=== PATIENT | female | born 1940 | race Caucasian/White ===

== ENCOUNTER 2021-07-08 11:10 | Emergency (ER) | payer BC ==
[~2021-07-08] VITALS: Ht 160 cm; Wt 108.6 kg
--- NOTE | 2021-07-08 15:10 | PHYS DOC ---
Past Medical History Past Medical History: CHF, GERD, Hypertension Past Surgical History: Cholecystectomy, Hysterectomy, Knee Replacement Additional Past Surgical Histo: back surgery Smoking Status: Former Smoker Alcohol Use: None General Adult EDM: Chief Complaint: OTHER COMPLAINTS HPI: HPI: Patient is a 81 year old female with history of hypertension, acid reflux, CHF, who presents to the ED today complaining of a sharp intermittent 1 out of 10 pain going through her right eye and around the right temporal region to the right forehead, symptoms have been going on for 2 weeks. Patient denies any vision loss, denies any exacerbating or relieving factors. He states he was seen by a dentist last because she thought this was a dental problem but the dentist stated there was no dental issue. She states she saw the glass selector today at [facility], and was sent to the ED for rule out of giant temporal arteritis. Review of Systems: Review of Systems: Constitutional: Denies fever or chills. [] Eyes: Reports right eye pain, pain around her right temporal region and right forehead, denies change in visual acuity. [] HENT: Denies nasal congestion or sore throat. [] Respiratory: Denies cough or shortness of breath. [] Cardiovascular: Denies chest pain or edema. [] GI: Denies abdominal pain, nausea, vomiting, bloody stools or diarrhea. [] : Denies dysuria. [] Musculoskeletal: Denies back pain or joint pain. [] Integument: Denies rash. [] Neurologic: Denies headache, focal weakness or sensory changes. [] Psychiatric: Denies depression or anxiety. [] Heart Score: C/O Chest Pain: N/A Risk Factors: Risk Factors: DM, Current or recent (<one month) smoker, HTN, HLP, family history of CAD, obesity. Risk Scores: Score 0 - 3: 2.5% MACE over next 6 weeks - Discharge Home Score 4 - 6: 20.3% MACE over next 6 weeks - Admit for Clinical Observation Score 7 - 10: 72.7% MACE over next 6 weeks - Early Invasive Strategies Allergies: Allergies: Allergies Coded Allergies Type Severity Reaction Last Updated Verified codeine Allergy Intermediate Unknown 07/08/21 Yes cyclobenzaprine Allergy Intermediate Rash 07/08/21 Yes Physical Exam: PE: Constitutional: Well developed, well nourished, no acute distress, non-toxic a ppearance. [] HENT: Normocephalic, atraumatic, bilateral external ears normal, oropharynx moist, no oral exudates, nose normal. [place] Eyes: PERRLA, EOMI, conjunctiva normal, no discharge. There is tenderness to the right temporal and right forehead Neck: Normal range of motion, no tenderness, supple, no stridor. [] Cardiovascular:Heart rate regular rhythm, no murmur [] Lungs & Thorax: Bilateral breath sounds clear to auscultation [] Abdomen: Bowel sounds normal, soft, no tenderness, no masses, no pulsatile m asses. [] Skin: Warm, dry, no erythema, no rash. [] Back: No tenderness, no CVA tenderness. [] Extremities: No tenderness, no cyanosis, no clubbing, ROM intact, no edema. [] Neurologic: Alert and oriented X 3, normal motor function, normal sensory function, no focal deficits noted. Cranial nerves II through XII intact Psychologic: Affect normal, judgement normal, mood normal. [] Current Patient Data: Vital Signs: Vital Signs Date Time Temp Pulse Resp B/P (MAP) Pulse Ox O2 Delivery O2 Flow Rate FiO2 07/08/21 13:24 97.8 71 18 113/53 (73) 97 97.8 EKG: EKG: [] Radiology/Procedures: Radiology/Procedures: []PROCEDURE: CT HEAD WO CONTRAST EXAM: CT head without contrast INDICATION: Right eye pain COMPARISON: None TECHNIQUE: Axial CT imaging through the head without intravenous contrast. Sagittal and coronal reformats were obtained. One or more of the following individualized dose reduction techniques were utilized for this examination: 1. Automated exposure control 2. Adjustment of the mA and/or kV according to patient size 3. Use of iterative reconstruction technique. FINDINGS: Ventricles and sulci are mildly enlarged. There is mild periventricular and scattered deep white matter hypoattenuation. No intracranial hemorrhage or acute infarct. Paranasal sinuses and mastoid air cells are clear. Globes and orbits are intact. Skull and scalp are unremarkable. IMPRESSION: No acute intracranial abnormality. Electronically signed by: Angie Benjamin MD (07/08/2021 3:52 PM) [id number] DICTATED and SIGNED BY: ANGIE BENJAMIN MD DATE: 07/08/21 [id number] 0 Course & Med Decision Making: Course & Med Decision Making Pertinent Labs and Imaging studies reviewed. (See chart for details) This is a 81-year-old female patient presenting to the ED today complaining of 1 out of 10 pain in the right eye and around to the right nondenominational and right forehead, symptoms of been going on for 2 weeks. Was seen by dentist last and was told this is not a dental issue. Was seen by the glass selector today and was sent to the ED for rule out of giant temporal arteritis Vitals on arrival to the ED temperature 97.8, heart rate 71, respiration 18 on room air, blood pressure 113/53, O2 sats 97%. CT of the head is negative for any acute findings. CBC with a normal WBC, sed rate 45, CRP 1.[address] Pandey and Dr. Perez-the recommended vascular surgeon to be contacted for biopsy I spoke with Dr. Flores, he stated the biopsy can be done as an outpatient Spoke to Dr. Cintron, he recommended patient to be treated outpatient. He requested to start patient on prednisone 60 mg daily for 2 weeks in the meantime she needs to follow-up with the neurologist, occupational therapist assistant, and vascular surgeon. Patient stated she will follow-up at [facility] Disclaimer: Secrette Disclaimer: This electronic medical record was generated, in whole or in part, using a voice recognition dictation system. Departure Departure Impression: Primary Impression: Headache Qualified Codes: R51.9 - Headache, unspecified Additional Impression: Pain, eye, right Disposition: 01 HOME / SELF CARE / HOMELESS Condition: STABLE Referrals: MELINA MCGUIRE MD (PCP) follow up as soon as you can MAKI PRETTY MD follow up as soon as you can EFFIE FLORES MD follow up for Biopsy as soon as you can Patient Instructions: Headache, FAQs Additional Instructions: You were evaluated in the emergency room, your CRP was 1.9 with a sed rate of 45. Your WBC was normal. Your CT of the head was normal. We were concerned about giant cell arteritis. Please follow-up with your primary care doctor as soon as you can. Also follow-up with the provided neurologist or a neurologist of your choice. Also follow-up with the provided vascular surgeon or a vascular surgeon and a occupational therapist assistant of your choice Take the prescribed prednisone as ordered. Come back to the ED at any point symptoms worsen Scripts Prednisone (PREDNISONE) 20 Mg Tablet 3 TAB PO DAILY for 14 Days, #42 TAB Prov: LOLA MUSTAFA APRN 07/08/21 LOLA MUSTAFA APRN Jul 08, 2021 15:10
--- NOTE | 2021-07-08 15:54 | RAD ---
EXAM: CT head without contrast INDICATION: Right eye pain COMPARISON: None TECHNIQUE: Axial CT imaging through the head without intravenous contrast. Sagittal and coronal refor mats were obtained. One or more of the following individualized dose reduction techniques were utilized for this examinat ion: 1. Automated exposure control 2. Adjustment of the mA and/or kV according to patient size 3. Use of iterative reconstruction technique. FINDINGS: Ventricles and sulci are mildly enlarged. There is mild periventricular and scattered deep white la er hypoattenuation. No intracranial hemorrhage or acute infarct. Paranasal sinuses and mastoid air ce lls are clear. Globes and orbits are intact. Skull and scalp are unremarkable. IMPRESSION: No acute intracranial abnormality. Electronically signed by: Angie Benjamin MD (07/08/2021 3:52 PM) [id number]
[2021-07-08 17:19] LABS: BASO # 0.1 x10^3/uL (0.0-0.2); BASO % 1 % (0-3); EOS # 0.1 x10^3/uL (0.0-0.7); EOS % 1 % (0-3); HEMATOCRIT 36.5 % (36.0-47.0); HEMOGLOBIN 12.2 g/dL (12.0-15.5); LYMPH % 20 % (24-48); MEAN CORPUSCULAR HEMOGLOBIN 30 pg (25-35); MEAN CORPUSCULAR HGB CONC 34 g/dL (31-37); MEAN CORPUSCULAR VOLUME 88 fL (79-100); MONO # 0.6 x10^3/uL (0.0-1.1); MONO % 6 % (0-9); NEUT # 7.2 x10^3/uL (1.8-7.7); NEUT % 72 % (31-73); PLATELET COUNT 285 x10^3/uL (140-400); RED BLOOD COUNT 4.15 x10^6/uL (3.50-5.40); RED CELL DISTRIBUTION WIDTH 14.4 % (11.5-14.5); WHITE BLOOD COUNT 10.1 x10^3/uL (4.0-11.0)
[2021-07-08 17:30] LABS: CALCIUM 8.2 mg/dL (8.5-10.1); CREATININE 1.1 mg/dL (0.6-1.0); GFR 47.7; POTASSIUM 3.8 mmol/L (3.5-5.1)
[2021-07-08 17:36] LABS: ALBUMIN 3.1 g/dL (3.4-5.0); ALBUMIN/GLOBULIN RATIO 0.9 (1.0-1.7); C-REACTIVE PROTEIN 1.9 mg/L (0-3.3); TOTAL BILIRUBIN 0.5 mg/dL (0.2-1.0); TOTAL PROTEIN 6.6 g/dL (6.4-8.2)
[2021-07-08] MEDS ORDERED: PRED20TA PO (19:31)
[2021-07-08] MEDS: predniSONE 20 MG TABLET PO ONE (19:35)
[2021-07-08 19:40] VITALS: BP 175/72
== END 2021-07-08 13:21 | disposition home or self-care (01) ==
LOC: ER 11:10
DX: R51.9 Headache, unspecified (principal); H57.11 Ocular pain, right eye; I11.0 Hypertensive heart disease with heart failure; I50.9 Heart failure, unspecified; K21.9 Gastro-esophageal reflux disease without esophagitis; Z87.891 Personal history of nicotine dependence; Z88.5 Allergy status to narcotic agent; Z88.8 Allergy status to other drugs, medicaments and biological substances
CPT/HCPCS: 36415; 70450; 80053; 85025; 85651; 86140; 99284; J7512